=== PATIENT | male | born 1970 | race Caucasian/White ===

== ENCOUNTER 2018-05-01 01:43 | Emergency (ER) | payer SELFPAY ==
[~2018-05-01] VITALS: Ht 185.4 cm; Wt 117.5 kg
[2018-05-01] MEDS ORDERED: LIDOCAINE 2% VISCOUS 15 ML UDC PO ONE (02:15)
[2018-05-01] MEDS ORDERED: AMOXICILLIN 500 MG (POLYMOX) CAP PO ONE (02:15)
--- NOTE | 2018-05-01 02:44 | ED EENT ---
History of Present Illness General Chief Complaint: Dental Problems/Pain Stated Complaint: DENTAL PAIN & SWELLING Nursing Triage Note: Reports upper frontal dental pain for 2-3 weeks, worsening pain over 2-3 days. Pt reports no insurance and no Dr or dentist Source: patient Exam Limitations: no limitations History of Present Illness Date Seen by Provider: Apr 30, 2018 Time Seen by Provider: 02:00 Initial Comments This 47-year-old gentleman presents to the emergency room with a few weeks of pain at the base of the upper incisors with localized swelling. Pain has worsened over the last 2-3 days. He has had an abscess previously and is fearful of recurrent abscess. He denies any fever. He has not been taking anything for the pain so far. Allergies and Home Medications Allergies Coded Allergies: No Known Drug Allergies (Unverified , 05/01/18) Home Medications Amoxicillin 500 Mg Tablet, 1,000 MG PO BID Prescribed by: MILENA PAIGE on 05/01/18 0245 Patient Home Medication List Home Medication List Reviewed: Yes Review of Systems Constitutional: no symptoms reported Eyes: No Symptoms Reported Ears: No Symptoms Reported Nose: no symptoms reported Mouth: see HPI Throat: no symptoms reported Respiratory: no symptoms reported Cardiovascular: no symptoms reported Gastrointestinal: no symptoms reported Musculoskeletal: no symptoms reported Skin: no symptoms reported Neurological: No Symptoms Reported Past Avwikcd-Udhtpi-Mvaqxb Hx Patient Social History Alcohol Use: Rarely Uses Recreational Drug Use: No Smoking Status: Light Tobacco Smoker Type Used: Cigarettes 2nd Hand Smoke Exposure: Yes Recent Foreign Travel: No Contact w/Someone Who Travel: No Recent Infectious Disease Expo: No Recent Hopitalizations: No Immunizations Up To Date Tetanus Booster (TDap): Unknown Seasonal Allergies Seasonal Allergies: No Past Medical History Surgeries: No Respiratory: No Cardiac: Yes Hypertension Neurological: No Genitourinary: No Gastrointestinal: No Musculoskeletal: No Endocrine: No HEENT: No Cancer: No Psychosocial: No Integumentary: No Blood Disorders: No Physical Exam Vital Signs Vital Signs - First Documented 05/01/18 01:53 Temp 98.6 Pulse 80 Resp 20 B/P (MAP) 190/117 (141) Pulse Ox 99 O2 Delivery Room Air Height, Weight, BMI Height: 6'1.00" Weight: 259lbs. oz. 117.469014ph; BMI Method:Stated General Appearance: WD/WN, no apparent distress Eyes: bilateral eye normal inspection, bilateral eye EOMI Ears: bilateral ear auricle normal, bilateral ear canal normal, bilateral ear TM normal Nose: normal inspection Mouth/Throat: pharynx normal, dental tenderness, other (Gingival swelling without overt abscess above the upper incisors. Eroded right upper incisor and cracked left upper incisor) Neck: supple, normal inspection Cardiovascular: regular rate, rhythm, no edema, no murmur Respiratory: lungs clear, normal breath sounds, no respiratory distress, no accessory muscle use Neurologic/Psychiatric: patent chemist II-XII nml as tested, no motor/sensory deficits, alert, normal mood/affect, oriented x 3 Skin: normal color, warm/dry, other (Karie cratered lesion on the right forehead near the scalp line greater than 1 cm in diameter suspicious for basal cell carcinoma.) Progress/Results/Core Measures Results/Orders My Orders Orders - MILENA PURCELL MD Amoxicillin Capsule (Polymox Capsule) (05/01/18 02:15) Lidocaine 2% Viscous 15 Ml (Xylocaine Vi (05/01/18 02:15) Medications Given in ED Current Medications Medications Dose Ordered Sig/Massimo Route Start Time Stop Time Status Last Admin Dose Admin Amoxicillin 1,000 mg ONCE ONCE PO 05/01/18 02:15 05/01/18 02:16 DC 05/01/18 02:26 1,000 MG Lidocaine HCl 20 ml ONCE ONCE PO 05/01/18 02:15 05/01/18 02:16 DC 05/01/18 02:27 20 ML Vital Signs/I&O 05/01/18 05/01/18 01:53 02:54 Temp 98.6 98.6 Pulse 80 80 Resp 20 20 B/P (MAP) 190/117 (141) 166/94 (141) Pulse Ox 99 99 O2 Delivery Room Air Blood Pressure Mean: 141 Progress Progress Note : Progress Note Patient was started on amoxicillin. Anesthetic gauze pads were distributed with precautions for use. The lesion on the right forehead and is felt to be a basal cell carcinoma. Follow-up for excision and biopsy was recommended. Prompt follow-up with a dentist was also recommended. Departure Impression Primary Impression: Pain, dental Additional Impressions: Dental abscess Facial lesion Episode of hypertension Disposition: HOME, SELF-CARE Condition: Improved Departure-Patient Inst. Decision time for Depature: 02:20 Referrals: NO,LOCAL PHYSICIAN (PCP/Family) Primary Care Physician Patient Instructions: Dental Pain (DC), Tooth Abscess (DC) Add. Discharge Instructions: Complete your antibiotics as prescribed. Follow-up with a dentist as soon as possible. Also follow-up with a primary care provider regarding your high blood pressure and the lesion on your forehead. The lesion on her forehead is likely basal cell carcinoma and needs to be removed and biopsied. You may take ibuprofen up to 600 mg every 6 hours as needed as well as Tylenol (acetaminophen ) up to 1000 mg every 6 hours as needed. Use the anesthetic gauze pads to blanket the affected area as needed for topical pain relief. Eat and drink very carefully after using gauze pads as your mouth, lips, tongue, and throat may be numb. Do NOT fall sleep with anesthetic gauze pads in your mouth. All discharge instructions reviewed with patient and/or family. Voiced understanding. Scripts Amoxicillin (Amoxicillin) 500 Mg Tablet 1000 MG PO BID, #40 TAB Prov: MILENA PURCELL MD 05/01/18 MILENA PURCELL MD May 01, 2018 02:44
[2018-05-01] MEDS ORDERED: AMOX500T2 PO (02:45)
[2018-05-01 02:54] VITALS: BP 166/94
== END 2018-05-01 02:54 | disposition home or self-care (01) ==
LOC: ER 01:49
DX: K04.7 Periapical abscess without sinus (principal); I10 Essential (primary) hypertension; L98.9 Disorder of the skin and subcutaneous tissue, unspecified; F17.210 Nicotine dependence, cigarettes, uncomplicated
CPT/HCPCS: 99283